=== PATIENT | female | born 1995 | race Caucasian/White ===

== ENCOUNTER 2017-07-18 22:15 | Emergency (ER) | payer BC, OTHER ==
[~2017-07-18] VITALS: Ht 160 cm; Wt 70.0 kg
[2017-07-18 22:16] VITALS: TEMP 36.1; Ht 160 cm; Wt 70.0 kg
[2017-07-18 23:13] LABS: CALCIUM 8.5 mg/dl (8.5-10.1); CREATININE 0.73 mg/dl (0.60-1.20); POTASSIUM 3.1 mmol/L (3.5-5.1)
--- NOTE | 2017-07-19 01:52 | EMERGENCY ROOM VISIT NOTE ---
History Report prepared by Luh: Jon Fuentes Under the Supervision of: Dr. Clem Martínez D.O. First contact with patient: 22:23 Chief Complaint: ALCOHOL OVERDOSE Stated Complaint: ALCOHOL OVERDOSE Nursing Triage Summary: Patient arrived via EMs from a frat house. Pat[place] was found sitting outside in her own vommit. Patient states she drank a four loco and several shots. Patient slurred speach and only able to answer simple questions. History of Present Illness The patient is a 21 year old female who presents to the Emergency Room for constant alcohol intoxication starting prior to arrival. Per the EMS, the patient was found vomiting sitting outside of her house. At that time she states that she drank for local and had several shots of vodka. The patient states that she was drinking "a lot of vodka". Patient is able to note that she is from [facility] and went to school at [employer]. 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 She is unwilling to give other significant parts of her history. History is limited secondary to intoxication. Source of History: patient, EMS History Limited By: intoxication Onset: prior to arrival Position: other (global) Quality: other (alcohol intoxication) Timing: constant Associated Symptoms: + vomiting Note: Associated symptoms: leg pain. Review of Systems History is limited secondary to intoxication Past Medical & Surgical Limited secondary to intoxication Family History Limited secondary to intoxication Social History Smoking Status: Never Smoker Marital Status: single Housing Status: lives with roommate Occupation Status: [employer] student Current/Historical Medications Unable to Obtain Active Prescriptions or Reported Meds Physical Exam Vital Signs Date Time Temp Pulse Resp B/P (MAP) Pulse Ox O2 Delivery O2 Flow Rate FiO2 07/19/17 01:00 85 16 97/67 96 Room Air 07/19/17 00:00 77 16 95/51 95 Room Air 07/18/17 23:16 93 18 97/68 96 Room Air 07/18/17 22:32 96 07/18/17 22:16 36.1 109 16 101/65 98 Room Air Physical Exam GENERAL: Laying prone, talking in full sentences, disheveled, no acute distress. Smell of alcohol on her breath. HEAD: normal cephalic, atraumatic EYE EXAM: normal conjunctiva, PERRL and EOM's grossly intact OROPHARYNX: no exudate, no erythema, lips, buccal mucosa, and tongue normal and mucous membranes are moist NECK: supple, no nuchal rigidity, no adenopathy, non-tender CHEST: stable to compression anteriorly and posteriorly LUNGS: clear to auscultation. Normal chest wall mechanics HEART: no murmurs, S1 normal and S2 normal ABDOMEN: abdomen soft, non-tender, normo-active bowel sounds, no masses, no rebound or guarding. PELVIS: stable to compression anteriorly and posteriorly BACK: Back is symmetrical on inspection and there is no deformity, no midline tenderness, no CVA tenderness. UPPER EXTREMITIES: full active and passive range of motion of all joints without tenderness to palpation LOWER EXTREMITIES: full active and passive range of motion of all joints without tenderness to palpation NEURO EXAM: Awake, alert, able to answer year, date, and time. Moving all extremities. Able to sit up. Non-focal. Visibly intoxicated. Medical Decision & Procedures Laboratory Results 07/18/17 22:22 Test 07/18/17 22:22 07/18/17 22:51 Anion Gap 12.0 mmol/L (3-11) Est Creatinine Clear Calc Drug Dose 116.3 ml/min Estimated GFR () 138.4 Estimated GFR (Non- 119.4 BUN/Creatinine Ratio 10.9 (10-20) Calcium Level 8.5 mg/dl (8.5-10.1) Ethyl Alcohol mg/dL 304.0 mg/dl (0-3) Human Chorionic Gonadotropin, Qual NEG (NEG) Laboratory results per my review. ED Course ED COURSE: Vital signs were reviewed and showed normal vitals The patients medical record was reviewed The above diagnostic studies were performed and reviewed. ED treatments and interventions as stated above. 2223: The patient was evaluated in room B1. A complete history and physical examination was performed. 0100: I reevaluated the patient, and she was awake and talking. She was still visibly intoxicated 0230: The patient was signed out to Dr. Avilez at the change of shift. Medical Decision Differential diagnosis: Etiologies such as alcohol intoxication, toxicologic, infection, hypoglycemia, electrolyte abnormalities, cardiac sources, intracerebral event, neurologic, as well as others were entertained. Patient is a 21-year-old female who presented to the ER via EMS. She was found outside a friend's house sitting in her own vomit. There is no signs of trauma on exam. She admits to drinking for local multiple shots. She has no other complaints on multiple repeat evaluations. She is resting comfortably. CBC shows a slightly low potassium at 3.1. Bicarb slightly low at 19 with a normal BSG. I do favor this is secondary to the alcohol ingestion. HCG was unremarkable. Alcohol was 300 at 1020. She can be discharged on her own at 8 AM or with a sober friend prior to this. Patient was signed out Dr. Avilez waiting for her to sober up for repeat evaluation. Medication Reconcilliation Current Medication List: was personally reviewed by me Blood Pressure Screening Patient's blood pressure: Normal blood pressure Impression Primary Impression: Alcohol abuse Additional Impressions: Alcoholic intoxication Hypokalemia Scribe Attestation The scribe's documentation has been prepared under my direction and personally reviewed by me in its entirety. I confirm that the note above accurately reflects all work, treatment, procedures, and medical decision making performed by me. Departure Information Dispostion Still a Patient Prescriptions Unable to Obtain Active Prescriptions or Reported Meds Patient Instructions [facility] Problem Qualifiers Additional Impressions: Alcoholic intoxication Complication of substance-induced condition: with unspecified complication Qualified Codes: F10.929 - Alcohol use, unspecified with intoxication, unspecified
--- NOTE | 2017-07-19 08:06 | EMERGENCY ROOM VISIT NOTE ---
ED Visit Note First contact with patient: 02:57 I received this patient in signout at the change of shift from Dr. Martínez, pending a more sober state. The patient was reevaluated and feeling well at 8: 00 this morning. She is awake and talkative. She does have a sober friend in route to the hospital for discharge. Patient will be discharged to follow-up with [facility] as directed. She will return to the ER for worsening symptoms or any medical concerns.
[2017-07-19 08:18] VITALS: BP 109/48; PULSE 111; O2SAT 98
== END 2017-07-19 08:15 | disposition home or self-care (01) ==
LOC: C.EDA 22:17
DX: F10.129 Alcohol abuse with intoxication, unspecified (principal); E87.6 Hypokalemia